=== PATIENT | female | born 1965 | race Caucasian/White ===

== ENCOUNTER 2025-08-20 12:24 | Outpatient (CLI) | payer OTHER ==
[2025-08-20 13:57] LABS: Estimated GFR - POC 98.0
== END 2025-08-20 12:25 | disposition home or self-care (01) ==
LOC: CT 12:24
PROVIDERS: ATTEND Otolaryngology Plastic Surgery within the Head & Neck
DX: J01.91 Acute recurrent sinusitis, unspecified (principal); J34.2 Deviated nasal septum
CPT/HCPCS: 36415; 82565